=== PATIENT | female | born 1960 | race Caucasian/White ===

== ENCOUNTER 2021-09-24 11:36 | Emergency (ER) | payer SELFPAY ==
[2021-09-24] MEDS ORDERED: Lorazepam 2 MG/ML VIAL ONE (11:55)
[2021-09-24] MEDS ORDERED: Ketorolac Tromethamine 30 MG/ML VIAL ONE (11:55)
== END 2021-09-24 14:25 | disposition home or self-care (01) ==
LOC: ERS 11:36
DX: S63.601A Unspecified sprain of right thumb, initial encounter (principal); S09.90XA Unspecified injury of head, initial encounter; I10 Essential (primary) hypertension; Y08.89XA Assault by other specified means, initial encounter; Z79.899 Other long term (current) drug therapy
CPT/HCPCS: 70450; 70498; 72125; 96374; 96375; J1885; J2060

== ENCOUNTER 2021-11-23 22:37 | Emergency (ER) | payer MEDICARE, SELFPAY ==
[2021-11-23 23:40] LABS: #Lymphocytes 1.1 thou/uL (1.20-3.40); #Monocytes 0.6 thou/uL (0.11-0.59); #Neutrophils 6.9 thou/uL (1.40-6.50); %Basophils 0.5 % (0.0-1.0); %Eosinophils 0.1 % (0.0-10.0); %Lymphocytes 12.4 % (21.0-51.0); %Monocytes 6.6 % (0.0-10.0); %Neutrophils 80.4 % (42.0-75.0); Hemoglobin 13.6 g/dL (12.0-16.0); Mean Corpuscular HGB CONC 33.5 g/dL (32.0-36.0); Mean Corpuscular Hemoglobin 29.6 pg (27.0-31.0); Mean Corpuscular Volume 88.2 fL (78.0-98.0); Mean Platelet Volume 6.9 fL (7.4-10.4); Platelet Count 418 thou/uL (130-400); RBC Distribution Width 12.9 % (11.5-14.5); Red Blood Cell (RBC) Count 4.59 mill/uL (4.20-5.40); White Blood Cell (WBC) Count 8.6 thou/uL (4.8-10.8)
[2021-11-24 00:06] LABS: ALT (SGPT) 147 U/L (8-55); AST (SGOT) 163 U/L (5-34); Albumin 4.1 g/dL (3.4-4.8); Alkaline Phosphatase 95 U/L (40-110); Anion Gap 22 mmol/L (10-20); BUN (Urea Nitrogen) 19 mg/dL (9.8-20.1); Bilirubin, Total 0.4 mg/dL (0.2-1.2); Calc. Creatinine Clearance 0 mL/min (70-130); Calcium 8.2 mg/dL (7.8-10.44); Carbon Dioxide 24 mmol/L (23-31); Chloride 102 mmol/L (98-107); Globulin 2.8 g/dL (2.4-3.5); Glucose 168 mg/dL (80-115); Protein, Total 6.9 g/dL (5.8-8.1); Sodium 145 mmol/L (136-145)
[2021-11-24 00:10] LABS: Potassium 2.8 mmol/L (3.5-5.1)
[2021-11-24] MEDS ORDERED: Potassium Chloride 20 MEQ/100 ML PREMIX BAG ONE (00:19)
[2021-11-24] MEDS ORDERED: Potassium Chloride 20 MEQ TAB ONE (00:19)
[2021-11-24 00:42] LABS: Magnesium 1.3 mg/dL (1.6-2.6)
[2021-11-24] MEDS ORDERED: Magnesium 2 GM/50 ML BAG (IN WATER) ONE (00:50)
[2021-11-24] MEDS ORDERED: Metoclopramide HCl 10 MG/2 ML VIAL ONE (01:41)
[2021-11-24] MEDS ORDERED: diphenhydrAMINE 50 MG/ML VIAL ONE (02:23)
== END 2021-11-24 03:05 | disposition home or self-care (01) ==
LOC: ERS 22:37
DX: E87.6 Hypokalemia (principal); R11.2 Nausea with vomiting, unspecified; I10 Essential (primary) hypertension; Z79.899 Other long term (current) drug therapy
CPT/HCPCS: 36415; 80053; 83735; 85025; 93005; 96365; 96366; 96368; 96375; J1200; J2765; J3475; J3480